=== PATIENT | female | born 1975 | race African-American/Black ===

== ENCOUNTER 2016-08-06 21:21 | Emergency (ER) | payer OTHER | END 2016-08-06 22:11 | disposition home or self-care (01) | LOC: CFTX 21:21 | DX: S61.022A Laceration with foreign body of left thumb without damage to nail, initial encounter (principal); S61.211A Laceration without foreign body of left index finger without damage to nail, initial encounter; J45.909 Unspecified asthma, uncomplicated; W45.8XXA Other foreign body or object entering through skin, initial encounter; Y92.009 Unspecified place in unspecified non-institutional (private) residence as the place of occurrence of the external cause | CPT/HCPCS: 12002; 99283 ==